=== PATIENT | male | born 1980 | race Caucasian/White ===

== ENCOUNTER 2021-02-18 11:09 | Emergency (ER) | payer OTHER ==
[~2021-02-18] VITALS: Ht 180.3 cm; Wt 86.0 kg
[2021-02-18] MEDS ORDERED: TETANUS AND DIPHTHERIA TOX/PF 0.5 ML VIAL. VAX IM ONE (11:45)
--- NOTE | 2021-02-18 11:57 | RAD ---
EXAM: XR HAND_LEFT 3 VIEWS 02/18/2021 11:35 AM CLINICAL INDICATION: Left first digit injury COMPARISON: None TECHNIQUE: 3 views of the left hand FINDINGS: No acute fracture. Alignment is normal. Joint spaces are maintained. There is a bandage ov er the thumb. No radiopaque foreign body. IMPRESSION: No acute osseous abnormality or radiopaque foreign body. Electronically signed by: Sushila Ribeiro MD (02/18/2021 11:54 AM) [id number]
[2021-02-18] MEDS ORDERED: HYDROcodone/APAP 5/325MG 1 TAB TABLET PO ONE (12:15)
[2021-02-18] MEDS ORDERED: LIDOCAINE 1%/EPI 1:100,000 10 ML VIAL. INJ ONE (12:15)
[2021-02-18] MEDS ORDERED: DIPH,PERTUSS(ACELL),TET VAC/PF 0.5 ML SYRINGE. VAX IM ONE (12:15)
[2021-02-18] MEDS ORDERED: LIDOCAINE 1% Multi-Dose 20 ML VIAL. ONE (12:16)
[2021-02-18] MEDS ORDERED: LIDOCAINE 1%/EPI 1:100,000 20 ML VIAL. ONE (12:19)
[2021-02-18] MEDS ORDERED: LIDOCAINE 1%/EPI 1:100,000 20 ML VIAL. INJ ONE (12:45)
[2021-02-18 12:53] VITALS: BP 161/91
--- NOTE | 2021-02-18 12:54 | PHYS DOC ---
Past History Past Surgical History: No Surgical History Alcohol Use: Occasionally General Adult EDM: Chief Complaint: LACERATION/AVULSION HPI: HPI: Patient is a 40-year-old male presents with laceration to left thumb. Patient states "I was cutting open a bag hops when I cut my thumb with a knife". "I was not able to get the bleeding controlled". Denies taking anything for pain before arrival. Tetanus is not up-to-date. Denies medical history. Review of Systems: Review of Systems: Constitutional: Denies fever or chills Eyes: Denies change in visual acuity HENT: Denies nasal congestion or sore throat Respiratory: Denies cough or shortness of breath Cardiovascular: Denies chest pain or edema GI: Denies abdominal pain, nausea, vomiting, bloody stools or diarrhea : Denies dysuria Musculoskeletal: Denies back pain or joint pain Integument: 2.5 cm laceration, left thumb Neurologic: Denies headache, focal weakness or sensory changes Endocrine: Denies polyuria or polydipsia Lymphatic: Denies swollen glands Psychiatric: Denies depression or anxiety Current Medications: Current Meds: Current Medications Medications (Trade) Dose Ordered Sig/Kendall Start Time Stop Time Status Last Admin Dose Admin Acetaminophen/ Hydrocodone Bitart (Lortab 5/325) 1 tab 1X ONCE 02/18/21 12:15 02/18/21 12:33 DC 02/18/21 12:29 1 TAB Diphtheria/ Pertussis/Tetanus Vacc (ADACEL TDap SYRINGE) 0.5 ml ONCE ONCE 02/18/21 12:15 02/18/21 12:40 DC Lidocaine HCl 20 ml STK-MED ONCE 02/18/21 12:16 02/18/21 12:16 DC Lidocaine/ Epinephrine (Xylocaine 1%-Epi 1:100,000) 20 ml 1X ONCE 02/18/21 12:45 02/18/21 12:46 DC Tetanus/ Diphtheria Toxoids Adsorbed (Tenivac Vial) 0.5 ml ONCE ONCE 02/18/21 11:45 02/18/21 11:56 DC 02/18/21 12:22 0.5 ML Allergies: Allergies: Allergies Coded Allergies Type Severity Reaction Last Updated Verified No Known Drug Allergies 02/18/21 No Physical Exam: PE: Constitutional: Well developed, well nourished, no acute distress, non-toxic appearance. [] HENT: Normocephalic, atraumatic, bilateral external ears normal, oropharynx moist, no oral exudates, nose normal. [] Eyes: PERRLA, EOMI, conjunctiva normal, no discharge. [] Neck: Normal range of motion, no tenderness, supple, no stridor. [] Cardiovascular:Heart rate regular rhythm, no murmur [] Lungs & Thorax: Bilateral breath sounds clear to auscultation [] Abdomen: Bowel sounds normal, soft, no tenderness, no masses, no pulsatile masses. [] Skin: 2.5 cm laceration to left thumb, range of motion intact, normal sensory function Back: No tenderness, no CVA tenderness. [] Extremities: No tenderness, no cyanosis, no clubbing, ROM intact, no edema. [] Neurologic: Alert and oriented X 3, normal motor function, normal sensory function, no focal deficits noted. [] Psychologic: Affect normal, judgement normal, mood normal. [] Current Patient Data: Vital Signs: Vital Signs Date Time Temp Pulse Resp B/P (MAP) Pulse Ox O2 Delivery O2 Flow Rate FiO2 02/18/21 12:29 20 Room Air 02/18/21 11:09 97.4 63 113/91 100 EKG: EKG: [] Radiology/Procedures: Radiology/Procedures: [] Heart Score: C/O Chest Pain: No Risk Factors: Risk Factors: DM, Current or recent (<one month) smoker, HTN, HLP, family history of CAD, obesity. Risk Scores: Score 0 - 3: 2.5% MACE over next 6 weeks - Discharge Home Score 4 - 6: 20.3% MACE over next 6 weeks - Admit for Clinical Observation Score 7 - 10: 72.7% MACE over next 6 weeks - Early Invasive Strategies Course & Med Decision Making: Course & Med Decision Making Pertinent Labs and Imaging studies reviewed. (See chart for details) [] 40-year-old male presents with a 2.5 cm laceration to left thumb after opening a bag of hops at work. Patient was unable to get bleeding controlled. Patient has full range of motion of his hand. Radial pulse intact. Capillary refill less than 2 seconds. Denies issues with sensation. Left hand x-ray was negative for foreign body or fracture. Patient states that his tetanus is not up-to-date. Tetanus was administered. Wound was cleaned, lidocaine with epi injected to numb the area, 5, 50, sutures were placed. Patient tolerated procedure well. Patient given hydrocodone for pain. Patient instructed to follow-up in 7 to 10 days to have sutures removed. Ibuprofen and Tylenol at home for discomfort. Discussed aftercare, signs of infection, and return precautions with patient. Patient states that he understands discharge instructions. Dragon Disclaimer: Dragon Disclaimer: This electronic medical record was generated, in whole or in part, using a voice recognition dictation system. Departure Departure: Impression: Primary Impression: Laceration Disposition: HOME / SELF CARE / HOMELESS Condition: STABLE Referrals: PCP,NO (PCP) Patient Instructions: Laceration Care, Adult, [id number] Additional Instructions: You were seen in the emergency room for a laceration to your left thumb. Your tetanus was updated. Please keep the dressing clean and dry. You can return to the emergency room to have sutures removed in 7 to 10 days, or follow-up with your PCP for removal. Ibuprofen and Tylenol for discomfort. Return emergency room if you have worsening symptoms or concerns. EMERGENCY DEPARTMENT GENERAL DISCHARGE INSTRUCTIONS Thank you for coming to [facility] (ED) today and trusting us with you care. We trust that you had a positivie experience in our Emergency Department. If you wish to speak to the department management, you may call the director at [phone]. YOUR FOLLOW UP INSTRUCTIONS ARE FOLLOWS: 1. Do you have a private Doctor? If you do not have a private doctor, please ask for a resource list of physicians or clinics that may be able to assist you with follow up care. 2. The Emergency Physician has interpreted your x-rays. The X-Ray specialist will also review them. If there is a change in the findings, you will be notified in 48 hours when at all possible. 3. A lab test or culture has been done, your results will be reviewed and you will be notified if you need a change in treatment. ADDITIONAL INSTRUCTIONS AND INFORMATION: 1. Your care today has been supervised by a physician who is specially trained in emergency care. Many problems require more than one evaluation for a complete diagnosis and treatment. We recommend that you schedule your follow up appointment as recommended to ensure complete treatment of you illness or injury. If you are unable to obtain follow up care and continue to have a problem, or if your condition worsens, we recommend that you return to the ED. 2. We are not able to safely determine your condition over the phone nor are we able to give sound medical advice over the phone. For these safety reasons, if you call for medical advice we will ask you to come to the ED for further evaluation. 3. If you have any questions regarding these discharge instructions please call the ED at [phone]. SAFETY INFORMATION: In the interest of safety, wellness, and injury prevention; we encourage you to wear your sealbelt, if you smoke; quite smoking, and we encourage family to use a protective helmet for bicycling and other sporting events that present an increased risk for head injury. IF YOUR SYMPTOMS WORSEN OR NEW SYMPTOMS DEVELOP, OR YOU HAVE CONCERNS ABOUT YOUR CONDITION; OR IF YOUR CONDITION WORSENS WHILE YOU ARE WAITING FOR YOUR FOLLOW UP APPOINTMENT; EITHER CONTACT YOUR PRIMARY CARE DOCTOR, THE PHYSICIAN WHOSE NAME AND NUMBER YOU WERE GIVEN, OR RETURN TO THE ED IMMEDIATELY. JOSE DE LA CRUZ APRN Feb 18, 2021 12:54
== END 2021-02-18 12:59 | disposition home or self-care (01) ==
LOC: ER 11:09
DX: S61.012A Laceration without foreign body of left thumb without damage to nail, initial encounter (principal); W26.0XXA Contact with knife, initial encounter; Y93.89 Activity, other specified; Y92.89 Other specified places as the place of occurrence of the external cause; Y99.8 Other external cause status
CPT/HCPCS: 12001; 73130; 90471; 90714; 99283